=== PATIENT | female | born 1975 | race Caucasian/White ===

== ENCOUNTER 2019-07-16 14:18 | Emergency (ER) | payer OTHER, SELFPAY ==
[2019-07-16 14:24] VITALS: BP 112/61; PULSE 80; RESP 20; TEMP 36.4; O2SAT 99
--- NOTE | 2019-07-16 14:31 | ED.EYEPROB ---
HPI - Eye Problem General Stated complaint: Swollen left eye Time Seen by Provider: 07/16/19 14:31 Source: patient and RN notes reviewed Mode of arrival: ambulatory Limitations: no limitations History of Present Illness MD chief complaint: other (Swollen eye) Related Data Allergies Allergy/AdvReac Type Severity Reaction Status Date / Time meperidine Allergy Severe hallucinations, Verified 07/16/19 14:32 vomiting theophylline Allergy Severe hallucinati Verified 07/16/19 14:32 ons raisins Allergy Anaphylactic Uncoded 07/16/19 14:38 Shock Review of Systems Review of Systems: Narrative: CONSTITUTIONAL: Denies malaise, chills, sweats, or fever. EYES: Denies visual changes, redness, or discharge. ENT: Denies rhinorrhea, congestion, sinus pain, otalgia or sore throat. CARDIOVASCULAR: Denies chest pain, palpitations, or edema. RESPIRATORY: Denies cough or dyspnea. GASTROINTESTINAL: Denies abdominal pain, nausea, vomiting, diarrhea, bloody, or mucous stools. GENITOURINARY: Denies dysuria or hematuria. SKIN: Denies rash or itching. MUSCULOSKELETAL: Denies back pain, joint pain, or myalgia. NEUROLOGIC: Denies numbness, weakness, or headache. PSYCHIATRIC: Denies anxiety or depression. All systems reviewed & are unremarkable except as noted in HPI and below PMFSH Comments At time of signature, agree with nursing past medical, surgical, social and family history. There is no relevant family history pertinent to the presenting complaint Exam Narrative: Exam Narrative: GENERAL: Well-appearing, well-nourished, and in no acute distress. HEAD: Normocephalic, atraumatic. EYES: PERRLA, conjunctivae clear, and EOMI. No nystagmus. ENT: Nares clear, turbinates pink, no rhinorrhea or epistaxis. Mucous membranes moist. TM pearly montero with sharp light reflex bilaterally; no tragal tenderness. Oropharynx without erythema or lesions. Tonsils not enlarged and without exudate. NECK: Supple. No lymphadenopathy. No jugular venous distension, thyromegaly, or carotid bruits. Carotids were easily palpable bilaterally. CHEST: No respiratory distress. Clear to auscultation. No bony deformities, no asymmetry. Speaks in full sentences. HEART: Regular rate and rhythm. No murmur heard. Normal peripheral pulses. ABDOMEN: Soft, nontender, nondistended, normal active bowel sounds, no palpable masses. EXTREMITIES: Normal range of motion. No edema. Normal strength and sensation. SKIN: Warm, dry, no rash. NEURO: Alert and oriented x3. No focal deficits. Cranial nerves II through XII grossly intact PSYCH: Normal mood and affect Course Course Emergency Course: Patient is aware of diagnosis, understands and agrees to treatment plan. Anticipatory guidance given. Patient agrees to follow-up as directed and is aware of reasons to seek care at the emergency department. Portions of this record may have been created with voice recognition software Vital Signs Vital signs: Reviewed. MDM - Eye Problem MDM Narrative Medical decision making narrative: Consideration of the following conditions may be warranted for the presenting problem, they are not final diagnoses: Bacterial conjunctivitis, allergic conjunctivitis, viral conjunctivitis, foreign body, blepharitis, chalazion, hordeolum, corneal abrasion. Exam findings show no acute concerns or changes; patient is non-toxic appearing and is in no distress. Patient is appropriate for outpatient treatment and follow-up. Critical Care Time Critical Care Time Critical Care Time: No Discharge Plan Discharge Clinical Impression: Cellulitis Qualifiers: Site of cellulitis: face Qualified Code(s): L03.211 - Cellulitis of face Patient Disposition: Home, Self-Care Condition: Stable Instructions: Antibiotic Form Additional Instructions: Please follow up with your Primary Care Doctor within 48-72 hours - call for an appointment. Rest and elevate affected area; apply moist heat 3-4 times daily for 10-15 minutes. T
== END 2019-07-16 14:40 | disposition home or self-care (01) ==
PROVIDERS: Emergency Provider Nurse Practitioner
DX: L03.211 Cellulitis of face (principal)
CPT/HCPCS: 99213; G0463

== ENCOUNTER 2020-02-19 17:00 | Emergency (ER) | payer OTHER, SELFPAY ==
[2020-02-19 17:10] VITALS: BP 134/69; PULSE 94; RESP 16; TEMP 36.4; O2SAT 94
--- NOTE | 2020-02-19 17:26 | ED.URI ---
HPI - URI/Sore Throat General Chief Complaint: Upper Respiratory Infection Stated Complaint: Ears and sore throat Related Data Home Medications Medication Instructions Recorded Confirmed albuterol sulfate [ProAir HFA] 2 puff INHALATION QID PRN 07/16/19 02/19/20 montelukast [Singulair] 10 mg PO DAILY 07/16/19 02/19/20 ropinirole [Requip] 3 mg PO BID 07/16/19 02/19/20 sertraline [Zoloft] 25 mg PO DAILY 07/16/19 02/19/20 Allergies Allergy/AdvReac Type Severity Reaction Status Date / Time meperidine Allergy Severe hallucinations, Verified 02/19/20 17:21 vomiting theophylline Allergy Severe hallucinati Verified 02/19/20 17:21 ons raisins Allergy Anaphylactic Uncoded 07/16/19 14:38 Shock PMFSH Past Medical History Medical History (Updated 02/19/20 @ 17:41 by STEPAN Regalado) Abnormal uterine bleeding Asthma COPD (chronic obstructive pulmonary disease) Sinusitis Sleep apnea Surgical History Surgical History History of appendectomy History of hysterectomy History of orthopedic surgery Family History Family History (Updated 02/19/20 @ 17:36 by STEPAN Regalado) Other No significant family history Social History Social History (Updated 02/19/20 @ 17:36 by STEPAN Regalado) Smoking status: Never smoker Alcohol intake: never Substance use: never Exam Narrative: Exam Narrative: GENERAL: Well-appearing, well-nourished, and in no acute distress. HEAD: Normocephalic, atraumatic. EYES: No redness or drainage. ENT: Mucous membranes pink and moist. Nares clear. No rhinorrhea. TMs full bilaterally. Throat mild erythema and edema. Frontal and maxillary sinus tenderness with palpation uvula midline. NECK: AROM. Supple. No lymphadenopathy. CHEST: No respiratory distress. HEART: Regular rate and rhythm. EXTREMITIES: Normal range of motion. SKIN: Warm, dry, no rash. NEURO: No focal deficits. Alert and oriented x3. Gait steady. PSYCH: Normal affect. No signs of depression or anxiety. Course Vital Signs Vital signs: Vital Signs Temperature 36.4 C 02/19/20 17:10 Pulse Rate 94 02/19/20 17:10 Respiratory Rate 16 02/19/20 17:10 Blood Pressure 134/69 02/19/20 17:10 Pulse Oximetry 94 02/19/20 17:10 Temperature 36.4 C 02/19/20 17:10 Pulse Rate 94 02/19/20 17:10 Respiratory Rate 16 02/19/20 17:10 Blood Pressure 134/69 02/19/20 17:10 Pulse Oximetry 94 02/19/20 17:10 MDM - URI/Sore Throat MDM Narrative Medical decision making narrative: Patient most likely has sinusitis for the past 2+ weeks intermittently. However she also has some body aches and sore throat over the past 3 days. Discussed Covid testing with patient. Patient be sent for Covid testing at this time. Patient aware of quarantine. Patient is stable for discharge to home with outpatient follow-up as needed. Differential Diagnosis Differential diagnosis: Likely upper respiratory infection, otitis media, sinusitis, viral infection and other (Covid) Critical Care Time Critical Care Time Critical Care Time: No Discharge Plan Discharge Clinical Impression: Sinusitis Qualifiers: Sinusitis location: maxillary Chronicity: acute Recurrence: not specified as recurrent Qualified Code(s): J01.00 - Acute maxillary sinusitis, unspecified Upper respiratory infection Qualifiers: URI type: unspecified URI Qualified Code(s): J06.9 - Acute upper respiratory infection, unspecified Patient Disposition: Home, Self-Care Condition: Stable Instructions: Antibiotic Form, COVID-19 (Coronavirus Disease 2019) (ED), Sinusitis (ED) Additional Instructions: Take antibiotics as directed. Follow-up for Covid testing. Quarantine as discussed. If you develop chest pain or shortness of breath, please go to the emergency department immediately. Prescriptions: No Action ropinirole [Requip] 3 mg Tablet 3 mg PO BID RF
== END 2020-02-19 17:45 | disposition home or self-care (01) ==
PROVIDERS: Emergency Provider Nurse Practitioner; PCP Family Medicine
DX: J01.00 Acute maxillary sinusitis, unspecified (principal); J06.9 Acute upper respiratory infection, unspecified; Z20.828 Contact with and (suspected) exposure to other viral communicable diseases; J44.9 Chronic obstructive pulmonary disease, unspecified; G47.30 Sleep apnea, unspecified
CPT/HCPCS: 87081; 87804; 87880; 99213; G0463

== ENCOUNTER 2020-02-20 08:51 | Outpatient (NON) | payer OTHER, SELFPAY ==
[2020-02-21 16:30] LABS: SARS-CoV-2 RNA PCR Negative
== END 2020-02-20 08:52 ==
LOC: ANHCOVIDDT 08:52
PROVIDERS: PCP Family Medicine; Visit Provider Nurse Practitioner
DX: J06.9 Acute upper respiratory infection, unspecified (principal); Z20.828 Contact with and (suspected) exposure to other viral communicable diseases
CPT/HCPCS: 87635; C9803; U0003

== ENCOUNTER 2020-12-16 19:18 | Emergency (ER) | payer OTHER, SELFPAY ==
--- NOTE | ~2020-12-16 | XR_ITS ---
EXAMINATION:[id number] DATE: 12/16/2020 20:13 INDICATION: Neck pain TECHNIQUE: AP, lateral, and odontoid views of the cervical spine are provided. COMPARISON: None FINDINGS: Alignment is normal. The odontoid is intact. No fracture is identified. The vertebral body heights are maintained. There is mild loss of intervertebral disc space height at C3-4, C5-6 and C6-7 . Small degenerative osteophytes project from the anterior endplates of multiple vertebral bodies. IMPRESSION: 1. Moderate cervical spondylosis without acute findings. However, if there is high clinical suspicion for cervical spine fracture, CT is recommended. Reviewed, dictated and finalized at location A. IMPRESSION: 1. Moderate cervical spondylosis without acute findings. However, if there is h igh clinical suspicion for cervical spine fracture, CT is recommended.
[2020-12-16 19:36] VITALS: BP 146/68; PULSE 84; RESP 14; TEMP 36.1; O2SAT 99
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
== END 2020-12-16 20:30 | disposition home or self-care (01) ==
PROVIDERS: Emergency Provider Nurse Practitioner; PCP Family Medicine
DX: S16.1XXA Strain of muscle, fascia and tendon at neck level, initial encounter (principal); V49.40XA Driver injured in collision with unspecified motor vehicles in traffic accident, initial encounter; J45.909 Unspecified asthma, uncomplicated; G47.30 Sleep apnea, unspecified
CPT/HCPCS: 72040; 99213; G0463